=== PATIENT | female | born 1955 | race Caucasian/White ===

== ENCOUNTER 2018-10-15 09:57 | Emergency (ER) | payer OTHER, SELFPAY ==
--- NOTE | 2018-10-15 10:04 | NURSING ---
NO OLD EKGS
[2018-10-15 10:09] VITALS: BP 119/80; PULSE 86; RESP 14; TEMP 36.4; O2SAT 95; BMI 22.4
--- NOTE | 2018-10-15 10:10 | EKG12_ITS ---
Test Reason : CP Blood Pressure : / mmHG Vent. Rate : 079 BPM Atrial Rate : 079 BPM P-R Int : 162 ms QRS Dur : 096 ms QT Int : 382 ms P-R-T Axes : 037 081 016 degrees QTc Int : 438 ms Normal sinus rhythm Normal ECG Confirmed by LISA AMARAL, ED ([id number]), electronic news gathering editor MELINA CHOW ([id number]) on 10/19/2018 3:41:46 PM Referred By: BEATRIZ Confirmed By:ED GONZALEZ MD
--- NOTE | 2018-10-15 10:10 | RAD_ITS ---
STUDY: X-RAY CHEST REASON FOR EXAM: Female, 63 years old. Left-sided chest pain. TECHNIQUE: PA and lateral views of the chest. COMPARISON: None. FINDINGS: EKG electrodes are seen. The lungs are clear and expanded. Scattered calcified granulomas. There is no demonstrated pleural abnormality. Normal size heart. Normal mediastinum and jennifer. Normal visualized pulmonary arteries. Normal visualized aortic arch and descending thoracic aorta. There are mild degenerative changes of the visualized thoracic spine. Normal visualized ribs, clavicles, and shoulders. There is no demonstrated abnormality of the visualized soft tissue structures of the upper abdomen. RAD/Chest PA and Lateral IMPRESSION: No acute abnormality is seen. Scattered calcified granulomas. Electronically Signed: Albin Red MD at 10:57 EST Tel [phone], Service support ,
[2018-10-15 10:16] VITALS: TEMP 36.5
--- NOTE | 2018-10-15 10:56 | ED.VISSUMM ---
- ER Visit Summary Date of Service: 10/15/18 Chief Complaint: Intermittent dull aching left chest pain History of Present Illness: The patient is a 63 F who presents because she has had 3-4 episodes of dull aching left chest pain above her left breast for the past several days. There is no exacerbating, precipitating or alleviating factors. Is no associated symptoms. She denies fever, chills night sweats. She denies URI symptoms. She denies history of PE, DVT and denies leg pain or swelling. She is presently pain-free. There is no pleuritic component. The pain is not related to meals or eating. Please read written note for complete detail Physical Examination: Vital signs noted and normal. HEENT is unremarkable. Heart is regular without murmur, gallop or rub. S1 and S2 are normal. Lungs are clear to auscultation with good movement of air bilaterally. There is no reproducible chest pain. There is no skin lesions noted. Abdomen soft nontender bowel sounds present normal. There is no CVA tenderness noted. Test Results: EKG revealed a sinus rhythm rate of 79 with normal AR interval, QRS duration, QT interval and axis. Two-view chest x-ray interpreted by me reveals normal chronic silhouette, mediastinum, lung parenchyma and osseous structures Emergency Department Course and Treatment: Per nurse protocol EKG was obtained. Chest x-ray was obtained to evaluate for infiltrate pneumothorax etc. Treatment Plan: Symptomatic Disposition: Discharge to home Impression: Intermittent transient left-sided chest pain This note was generated with [employer] dictation software. It may contain incorrect words, spelling, and punctuation that were not noted in review of the chart prior to signing ED Disposition - Plan for ED Patient: Disposition: Home or Assisted Living Chief Complaint: Chest Pain Instructions: ED Chest Pain NonCardiac Referrals: Care Physician,No Primary [Primary Care Provider] - Con Leon MD [STAFF PHYSICIAN] - 1-2 Weeks Additional Instructions: You were assigned to Dr. Con Leon since you are new to the area and do not have a primary care physician.
--- NOTE | 2018-10-15 11:00 | ED.DCSUM_ITS ---
- ER Visit Summary Date of Service: 10/15/18 Chief Complaint: Intermittent dull aching left chest pain History of Present Illness: The patient is a 63 F who presents because she has had 3-4 episodes of dull aching left chest pain above her left breast for the past several days. There is no exacerbating, precipitating or alleviating factors. Is no associated symptoms. She denies fever, chills night sweats. She denies URI symptoms. She denies history of PE, DVT and denies leg pain or swelling. She is presently pain-free. There is no pleuritic component. The pain is not related to meals or eating. Please read written note for complete detail Physical Examination: Vital signs noted and normal. HEENT is unremarkable. Heart is regular without murmur, gallop or rub. S1 and S2 are normal. Lungs are clear to auscultation with good movement of air bilaterally. There is no reproducible chest pain. There is no skin lesions noted. Abdomen soft nontender bowel sounds present normal. There is no CVA tenderness noted. Test Results: EKG revealed a sinus rhythm rate of 79 with normal [place] interval, QRS duration, QT interval and axis. Two-view chest x-ray interpreted by me reveals normal chronic silhouette, mediastinum, lung parenchyma and osseous structures Emergency Department Course and Treatment: Per nurse protocol EKG was obtained. Chest x-ray was obtained to evaluate for infiltrate pneumothorax etc. Treatment Plan: Symptomatic Disposition: Discharge to home Impression: Intermittent transient left-sided chest pain This note was generated with [employer] dictation software. It may contain incorrect words, spelling, and punctuation that were not noted in review of the chart prior to signing ED Disposition - Plan for ED Patient: Disposition: Home or Assisted Living Chief Complaint: Chest Pain Instructions: ED Chest Pain NonCardiac Referrals: Care Physician,No Primary [Primary Care Provider] - Con Leon MD [STAFF PHYSICIAN] - 1-2 Weeks Additional Instructions: You were assigned to Dr. Con Leon since you are new to the area and do not have a primary care physician.
[2018-10-15 11:07] VITALS: BP 108/68; PULSE 80
[2018-10-15 11:11] VITALS: BP 108/68
--- OUTSIDE RECORDS SUMMARY | 2018-12-10 06:38 | XMS RPT_ITS ---
:1955 Author Organization [facility] Care Team Providers Name Role Phone Mary Pyle Admitting Unavailable Mary Pyle Attending Unavailable Raffi Marques Attending Unavailable Primay Care Physicia, No Primary Care Unavailable PROBLEMS PROBLEMS No Problem Records FoundPROCEDURES PROCEDURES No Procedure Records FoundRESULTS RESULTS 12 LEAD ELECTROCARDIOGRAM Observed: 10/19/2018 Status: F Source: [facility] 3:[place] [facility] [place] [facility] Cardiovascular Services [address] [place] [address] 12 Lead EKG 10/15/18 1006 MR#: [id number] Acct: [id number] Name: MAJO DANIEL Rep #: [id number] : 1955 63 From: Ed Gonzalez MD Attending Dr: Status: DEP ER Ordering Dr: Raffi Marques MD Date: 10/15/18 Location: ED Sex: F C Admitted: Test Reason : CP Blood Pressure : / mmHG Vent. Rate : 079 BPM Atrial Rate : 079 BPM P-R Int : 162 ms QRS Dur : 096 ms QT Int : 382 ms P-R-T Axes : 037 081 016 degrees QTc Int : 438 ms Normal sinus rhythm Normal ECG Confirmed by LISA AMARAL, ED ([id number]), editorial intern MELINA CHOW ([id number]) on 10/19/2018 3:41:46 PM Referred By: Confirmed By:ED GONZALEZ MD 10/19/18 1541 Date Ed Gonzalez MD CC: No Primary Care Physician; Raffi Marques MD Signed EMERGENCY DEPARTMENT Observed: 10/15/2018 Status: F Source: [facility] SUMMARY 11:00 AM [facility] [place] [facility] Medical Records Department [address] [place] [address] Emergency Department Summary 10/15/18 1056 MR#: [id number] Acct: [id number] Name: MAJO DANIEL Rep #: [id number] : 1955 63 From: Raffi Marques MD PCP: Care Physician, No Primary Status: REG ER - ER Visit Summary Date of Service: 10/15/18 Chief Complaint: Intermittent dull aching left chest pain History of Present Illness: The patient is a 63 F who presents because she has had 3-4 episodes of dull aching left chest pain above her left breast for the past several days. There is no exacerbating, precipitating or alleviating factors. Is no associated symptoms. She denies fever, chills night sweats. She denies URI symptoms. She denies history of PE, DVT and denies leg pain or swelling. She is presently pain-free. There is no pleuritic component. The pain is not related to meals or eating. Please read written note for complete detail Physical Examination: Vital signs noted and normal. HEENT is unremarkable. Heart is regular without murmur, gallop or rub. S1 and S2 are normal. Lungs are clear to auscultation with good movement of air bilaterally. There is no reproducible chest pain. There is no skin lesions noted. Abdomen soft nontender bowel sounds present normal. There is no CVA tenderness noted. Test Results: EKG revealed a sinus rhythm rate of 79 with normal [place] interval, QRS duration, QT interval and axis. Two-view chest x-ray interpreted by [place] reveals normal chronic silhouette, mediastinum, lung parenchyma and osseous structures Emergency Department Course and Treatment: Per nurse protocol EKG was obtained. Chest x-ray was obtained to evaluate for infiltrate pneumothorax etc. Treatment Plan: Symptomatic Disposition: Discharge to home Impression: Intermittent transient left-sided chest pain This note was generated with [employer] dictation software. It may contain incorrect words, spelling, and punctuation that were not noted in review of the chart prior to signing ED Disposition - Plan for ED Patient: Disposition: Home or Assisted Living Chief Complaint: Chest Pain Instructions: ED Chest Pain NonCardiac Referrals: Care Physician,No Primary [Primary Care Provider] - Con Leon MD [STAFF PHYSICIAN] - 1-2 Weeks Additional Instructions: You were assigned to Dr. Con Leon since you are new to the area and do not have a primary care physician. What to do if you have Problems For any increased pain, shortness of breath, bleeding, nausea or vomiting, chest pain, or any unexpected problems, contact your Primary Care Provider. Call [facility] ([phone]) or report to the closest Emergency Room. Call 911 if necessary. 10/15/18 1100 <Electronically signed by Raffi Marques MD> Date Raffi Marques MD Cosigner Signature (If Indicated): Date CC: No Primary Care Physician; Con Leon MD CHEST PA AND LATERAL Observed: 10/15/2018 Status: F Source: [facility] 10:10 AM [facility] Imaging Services [address] [place] [id number] Chest PA and Lateral MR#: [id number] Acct: [id number] Name: MAJO DANIEL Rep #: [id number] : 1955 F 63 From: Albin Red MD PCP: Care Physician, No Primary Status: REG ER Study: Chest PA and Lateral Date of Exam: 10/15/18 Exam# [id number] Ordering Dr: Raffi Marques MD STUDY: X-RAY CHEST REASON FOR EXAM: Female, 63 years old. Left-sided chest pain. TECHNIQUE: PA and lateral views of the chest. COMPARISON: None. FINDINGS: EKG electrodes are seen. The lungs are clear and expanded. Scattered calcified granulomas. There is no demonstrated pleural abnormality. Normal size heart. Normal mediastinum and jennifer. Normal visualized pulmonary arteries. Normal visualized aortic arch and descending thoracic aorta. There are mild degenerative changes of the visualized thoracic spine. Normal visualized ribs, clavicles, and shoulders. There is no demonstrated abnormality of the visualized soft tissue structures of the upper abdomen. RAD/Chest PA and Lateral IMPRESSION: No acute abnormality is seen. Scattered calcified granulomas. Electronically Signed: Albin Red MD at 10:57 EST Tel [phone], Service support , CC: No Primary Care Physician; Raffi Marques MD Funeral Service Apprentice: Signed ANKLE Observed: 12/05/2017 Status: F Source: [facility] 7:25 PM [facility] REPOSITORY Final Report Accession No: [id number] Performed: Dec 05 2017 7:25PM Examination: RIGHT ANKLE EXAM TYPE: ANKLE RIGHT EXAM DATE AND TIME: 12/05/2017 7:25 PM. INDICATION: 62-year-old female with ankle pain. COMPARISON: None. TECHNIQUE: AP, lateral and oblique views of the right ankle. FINDINGS: Suggestion of displaced oblique fracture involving the distal fifth metatarsal shaft, only well seen on the oblique projection. Joints and ankle mortise are anatomically aligned. Moderate soft tissue swelling overlying the lateral malleolus. IMPRESSION: 1. Suggestion of displaced oblique fracture involving the distal fifth metatarsal shaft, only well seen on the oblique projection. Recommend dedicated foot x-ray. 2. No ankle fracture identified. 3. Moderate soft tissue swelling overlying the lateral malleolus. Interpreting Physician: ASHLEY LARA D.O. Trans: bminni : cc: ANKLE Observed: 12/05/2017 Status: F Source: [facility] 7:25 PM [facility] REPOSITORY Final Report Accession No: [id number] Performed: Dec 05 2017 7:25PM Examination: LEFT ANKLE EXAM TYPE: ANKLE LEFT EXAM DATE AND TIME: 12/05/2017 7:25 PM INDICATION: 62-year-old female with ankle pain after trauma. COMPARISON: None. TECHNIQUE: AP, lateral and oblique views of the left ankle. FINDINGS: Oblique fracture of the distal fibula at the level of the ankle mortise. 3 mm lateral displacement of the distal fracture fragment. Joints and ankle mortise are anatomically aligned. No significant widening of the medial clear space. Moderate soft tissue swelling overlying the lateral malleolus. IMPRESSION: 1. Oblique fracture of the distal fibula at the level of the ankle mortise with 3 mm lateral displacement of the distal fracture fragment. 2. No significant widening of the ankle mortise. Interpreting Physician: ASHLEY LARA D.O. Trans: bminni : cc: ALLERGIES ALLERGIES DATE TYPE / CODE NAME / CODE REACTION SEVERITY SOURCE 10/15/2018 Drug No Known Unknown [facility] Allergy/4160 Allergies/F00 [facility] [address]9620(SNOMED [id number](RXNOR Repository CT) M) ENCOUNTERS ENCOUNTERS ADMIT/DISCHARGE ACCOUNT NUMBER ADMITTING ENCOUNTER LOCATION SOURCE CLASS 10/15/2018/10/15/20 [id number] Emergency Nash Nash 18 [facility] ding:ED Repository 12/05/2017 [id number] [facility] Repository PAYERS PAYERS ENCOUNTER GUARANTOR PAYER SUBSCRIBER SOURCE 10/15/2018 MAJO Bowles Primary MAJO J Nash [id number] Insurance:AETNASarbjit CASEYB: [facility] Number: [id number] [id number] Repository [address]Niu: (954) Date:[id number] [phone] () [id number] [address]ZW: 10/15/2018 Secondary NOT GIVENUNK Nash Insurance:SELF PAY [facility] Number: Effective Repository Date:2018-10-15 12/05/2017 Primary [facility] Insurance:AetnaSarbjit CASEYB: [place] and Number: [id number] [place] [address] [id number] oH GERDA Repository Date:Plan Name:Health [place], [place] [address]Nur: ()
== END 2018-10-15 11:23 | disposition home or self-care (01) ==
PROVIDERS: Emergency Provider Emergency Medicine
DX: R07.9 Chest pain, unspecified (principal); I10 Essential (primary) hypertension; Z79.899 Other long term (current) drug therapy
CPT/HCPCS: 71046; 93005; 99283